=== PATIENT | male | born 1970 | race Caucasian/White ===

== ENCOUNTER 2024-06-07 09:11 | Emergency (ER) | payer OTHER, SELFPAY ==
[2024-06-07 09:34] VITALS: BP 135/91; PULSE 86; RESP 18; TEMP 37.2; O2SAT 99
--- NOTE | 2024-06-07 09:39 | ED.SKABFB ---
HPI - Skin/Abscess/Foreign Bdy General Chief complaint: Skin/Abscess/Foreign Body Stated complaint: return of rash after finishing meds Source: patient Mode of arrival: ambulatory Limitations: no limitations History of Present Illness HPI narrative: 53-year-old male presented for complaint of red itchy rash to the back of the right leg and the side of the left leg. States he thinks it started as poison claribel. Symptoms onset approximately 2 weeks, he is currently completing a 10 day course of Bactrim as prescribed by his PCP. He states he was also prescribed prednisone which improved the symptoms until the prednisone course was completed, then it started to flare again. He applied salt and toothpaste to the site this morning and has been taking extremely hot showers. Denies lip, tongue, or throat swelling, shortness of breath or wheezing. Denies changes to soap, detergent, lotion, or any other exposures. No one else in the house or any contacts with similar symptoms. Related Data Home Medications ?Medication ?Instructions ?Recorded ?Confirmed ?Last Taken ?Type lisinopril 40 mg tablet mg 06/07/24 Unknown History sulfamethoxazole 800 tablet 06/07/24 Unknown History mg-trimethoprim 160 mg tablet Allergies Allergy/AdvReac Type Severity Reaction Status Date / Time No Known Drug Allergies Allergy Mild Unknown Verified 06/07/24 09:35 Review of Systems Review of Systems: CONSTITUTIONAL: Denies body aches, fever, chills, or sweats. EYES: Denies visual changes, redness, or discharge. ENT: Denies rhinorrhea, congestion CARDIOVASCULAR: Denies chest pain, palpitations, or edema. RESPIRATORY: Denies cough or dyspnea. GASTROINTESTINAL: Denies abdominal pain, nausea, vomiting, or diarrhea. SKIN: per HPI MUSCULOSKELETAL: Denies back pain, joint pain, or myalgia. NEUROLOGIC: Denies headache, numbness, tingling, or weakness. PMFSH Comments At time of signature, I have reviewed and agree with nursing past medical, surgical, social and family history unless otherwise noted. Please see nursing chart for further information. There is no relevant family history pertinent to the presenting complaint Exam Narrative: GENERAL: Well-appearing EYES: conjunctivae clear, and EOMI. ENT: Mucous membranes moist. Oropharynx without edema, erythema or lesions. CHEST: Clear to auscultation. HEART: Regular rate and rhythm. SKIN: Warm, dry. Right posterior knee with dry/scabbed erythematous skin extending from mid hamstring to mid calf, nontender, no drainage. Slightly warm. Left lateral lower leg with dry/scabbed erythematous skin extending from knee to mid lower leg. No open areas. NEURO: Alert and oriented x3. Course Course Emergency Course: Patient is aware of diagnosis, understands and agrees to treatment plan. Anticipatory guidance given. Patient agrees to follow-up as directed and is aware of reasons to seek care at the emergency department. Portions of this record may have been created with voice recognition software Level of Care: Express Care Visit Vital Signs Vital signs: Vital Signs Temperature 98.9 F 06/07/24 09:34 Pulse Rate 86 06/07/24 09:34 Respiratory Rate 18 06/07/24 09:34 Blood Pressure 135/91 H 06/07/24 09:34 Pulse Oximetry 99 06/07/24 09:34 Oxygen Delivery Room Air 06/07/24 09:34 Temperature 98.9 F 06/07/24 09:34 Pulse Rate 86 06/07/24 09:34 Respiratory Rate 18 06/07/24 09:34 Blood Pressure 135/91 H 06/07/24 09:34 Pulse Oximetry 99 06/07/24 09:34 Oxygen Delivery Room Air 06/07/24 09:34 Reviewed MDM - Skin/Abscess/Foreign Bdy MDM Narrative Medical decision making narrative: Discussed physical exam findings and RXs. States I don't like to take much medicine. Advised supportive measures and signs/symptoms to go to the ER. Pt is appropriate for outpt treatment and f/u. Differential Diagnosis Differential diagnosis: Likely abscess of skin or subcutaneous tissue, urticaria, herpes zoster, cellulitis and contact dermatitis Discharge Plan Discharge Clinical Impression: Cellulitis Patient Disposition: Home, Self-Care Condition: Stable Instructions: Antibiotic Form, Cellulitis (ED) Additional Instructions: Take steroids and Pepcid as directed. Benadryl or zyrtec according to package directions for itching. You can apply hydrocortisone cream, benadryl cream, or calamine lotion to the site of itching Cool compresses to the sites of itching, avoid hot water. Avoid scratching to reduce the risk of infection Do not apply hydrogen peroxide, alcohol, toothpaste or any thing that is not approved by PCP for treatment. Follow up with your primary care provider in 1 week Go to the ER for worsening symptoms or concerns (lip, tongue, throat swelling/itching, trouble breathing etc) Patient Language: Japanese Prescriptions: New famotidine [Pepcid] 40 mg tablet 40 mg PO DAILY Qty: 10 0RF prednisone 20 mg tablet 20 mg PO DAILY Qty: 12 0RF Rx Instructions: take 3 tablets daily for 2 days, then 2 tablets daily for 2 days then 1 tablet daily for 2 days No Action sulfamethoxazole-trimethoprim 800-160 mg tablet lisinopril 40 mg tablet Follow-up/Referrals: Marti,Yola Chavez APRN [Primary Care Provider] - Time of Disposition: 10:00
== END 2024-06-07 10:02 | disposition home or self-care (01) ==
PROVIDERS: Emergency Provider Nurse Practitioner Family; PCP Nurse Practitioner Family
DX: L03.116 Cellulitis of left lower limb (principal); L03.115 Cellulitis of right lower limb; I10 Essential (primary) hypertension
CPT/HCPCS: 99203; G0463